=== PATIENT | male | born 1950 | race African-American/Black ===

== ENCOUNTER 2017-01-08 12:14 | Emergency (ER) | payer OTHER ==
[2017-01-08 12:20] VITALS: BP 125/78; PULSE 70; TEMP 98; BMI 25.8
[2017-01-08] MEDS ORDERED: DIPHTH,PERTUSS(ACELL),TET 0.5 ML DISP.SYRIN IM ONE (12:45)
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
== END 2017-01-08 12:52 | disposition home or self-care (01) ==
LOC: JERFT 12:14
PROC: 3E0234Z Introduction of Serum, Toxoid and Vaccine into Muscle, Percutaneous Approach (ICD-10-PCS; principal; 2017-01-08)
PROC: 0JQ00ZZ Repair Scalp Subcutaneous Tissue and Fascia, Open Approach (ICD-10-PCS; 2017-01-08)
DX: S01.01XA Laceration without foreign body of scalp, initial encounter (principal); Y00.XXXA Assault by blunt object, initial encounter; Y93.89 Activity, other specified; Y92.59 Other trade areas as the place of occurrence of the external cause; Y99.8 Other external cause status
CPT/HCPCS: 12002-25; 90471; 90715; 99282-25

== ENCOUNTER 2023-08-10 23:31 | Emergency (ER) | payer OTHER ==
[2023-08-10 23:37] VITALS: BP 169/74; PULSE 87; RESP 18; TEMP 98.8; BMI 27.3
[2023-08-10] MEDS ORDERED: DEXAMETHASONE LIQUID 0.5 MG/5 ML PO ONE (23:53)
[2023-08-10] MEDS ORDERED: KETOROLAC TROMETHAMINE 30 MG/1 ML VIAL IM ONE (23:54)
[2023-08-11] MEDS ORDERED: KETOROLAC TROMETHAMINE 30 MG/1 ML VIAL ONE (00:14)
[2023-08-11] MEDS ORDERED: DEXAMETHASONE SOD PHOSPHATE 10 MG/1 ML VIAL ONE (00:14)
[2023-08-11] MEDS ORDERED: ALBUTEROL SO4 2.5/IPRATROPIUM 0.5 INH SOL 3 ML VIAL.NEB. NEB ONE ×2 (00:14→00:50)
== END 2023-08-11 01:36 | disposition home or self-care (01) ==
LOC: JER 23:31
PROC: 3E0233Z Introduction of Anti-inflammatory into Muscle, Percutaneous Approach (ICD-10-PCS; principal; 2023-08-10)
PROC: 3E0F7GC Introduction of Other Therapeutic Substance into Respiratory Tract, Via Natural or Artificial Opening (ICD-10-PCS; 2023-08-11)
DX: J02.9 Acute pharyngitis, unspecified (principal); R06.02 Shortness of breath; U07.1 COVID-19; R07.9 Chest pain, unspecified
CPT/HCPCS: 0241U-QW; 71046-TC-FY; 93005; 93010; 94640; 96372; 99285-25